=== PATIENT | female | born 2000 | race Caucasian/White ===

== ENCOUNTER 2021-11-21 09:35 | Outpatient (CLI) | payer BC, SELFPAY ==
--- NOTE | ~2021-11-21 | MR_ITS ---
EXAMINATION: MR brain/brain stem wo/w con DATE: 11/21/2021 11:13 INDICATION: Hyperprolactinemia. TECHNIQUE: Magnetic resonance imaging (MRI) of the brain and brainstem was performed without and with 20 mL MultiHance intravenous contrast. Whole-brain sequences included sagittal T1-weighted FSE, axia l diffusion-weighted FS EPI, axial T2*-weighted GRE, axial T2-weighted FLAIR Propeller, and axial T2- weighted Propeller. Small bigdv-ch-ykly sequences included sagittal and coronal T1-weighted FSE cente red at the pituitary. Postcontrast sequences included small [id number] coronal T1-weighted FSE in a time course and sagittal T1-weighted FSE and whole-brain axial T1-weighted FSE. Apparent diffusion coefficient (ADC) maps were created. COMPARISON: None. FINDINGS: There is a 4.5 x 3.1 cm arachnoid cyst posterior to the cerebellum. The pituitary is normal in size with height of 4 mm and concave superior margin. There is no intracranial hemorrhage, acute infarction, or abnormal intracranial mass lesion. The ventricles are normal in size. There is mild mu cosal thickening in the ethmoid sinuses. The orbits are normal. The mastoid air cells are normal. IMPRESSION: 1. Normal pituitary. Reviewed, dictated and finalized at location A. T [employer] IMPRESSION: 1. Normal pituitary.
[2021-11-21 10:17] LABS: Estimated Glomerular Filt Rate > 60
== END 2021-11-21 09:36 | disposition home or self-care (01) ==
LOC: ANHIMG 09:42
PROVIDERS: Visit Provider Student in an Organized Health Care Education/Training Program
DX: E22.1 Hyperprolactinemia (principal); M25.511 Pain in right shoulder
CPT/HCPCS: 70553; A9577